=== PATIENT | male | born 1945 | race Hispanic/Latino ===

== ENCOUNTER → 2018-06-19 | Day surgery (SDC) | payer MEDICARE ==
[2018-06-10 10:10] LABS: BASOPHILS % 0.6 % (0.0-1.0); EOSINOPHILS # (AUTO) 0.2 (0.0-0.4); EOSINOPHILS % 3.1 % (0.0-6.0); HEMATOCRIT 46.1 % (38.2-49.6); HEMOGLOBIN 15.1 g/dL (14.0-18.0); LYMPHOCYTES # (AUTO) 2.8 (1.0-3.2); LYMPHOCYTES % 38.5 % (18.0-39.1); MEAN CORPUSCULAR HEMOGLOBIN 28.3 pg (28-32); MEAN CORPUSCULAR HGB CONC 32.8 g/dL (31-35); MEAN CORPUSCULAR VOLUME 86.3 fL (81-99); MONOCYTES # (AUTO) 0.7 (0.2-0.8); MONOCYTES % 10.2 % (4.4-11.3); NEUTROPHILS # (AUTO) 3.4 (2.1-6.9); NEUTROPHILS % 47.5 % (38.7-80.0); PLATELET COUNT 101 x10e3/uL (140-360); RED BLOOD COUNT 5.34 x10e6/uL (4.3-5.7); RED CELL DISTRIBUTION WIDTH 13.2 % (11.7-14.4)
--- NOTE | 2018-06-10 10:12 | Diagnostic Imaging Report ---
PROCEDURE: X-RAY CHEST, TWO VIEWS COMPARISON: None. INDICATIONS: PRE OP SHOULDER SURGERY FINDINGS: Lungs are well-inflated. No focal airspace consolidation, pleural effusion, or pneumothorax. No mediastinal lesion with an air-fluid level consistent with a hiatal hernia. Otherwise normal cardiomediastinal contour. No overt pulmonary edema. No acute osseous abnormalities. 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 CONCLUSION: No acute cardiopulmonary abnormality. Large hiatal hernia. Dictated by: Delano Falcon M.D. on 06/10/2018 at 10:20 Electronically approved by: Delano Falcon M.D. on 06/10/2018 at 10:20
[2018-06-10 10:26] LABS: ANION GAP 15.7 mmol/L (8-16); BLOOD UREA NITROGEN 16 mg/dL (7-26); BUN/CREATININE RATIO 16 (6-25); CALCIUM 10.1 mg/dL (8.4-10.2); CARBON DIOXIDE 28 mmol/L (22-29); CHLORIDE 100 mmol/L (98-107); CREATININE, SERUM 0.98 mg/dL (0.72-1.25); EST GLOMERULAR FILTRATION RATE > 60 ML/MIN (60-); GLUCOSE 96 mg/dL (74-118); POTASSIUM 3.7 mmol/L (3.5-5.1); SODIUM 140 mmol/L (136-145)
[~2018-06-19] MED LIST: BUPIVACAINE 0.25%/EPI 30ML SDV INJ ONE; DEXAMETHASONE SOD PHOS INJ 4 MG/ML VIAL ONE; EPHEDRINE SULFATE INJ 50 MG/10 ML SYR ONE; FAMOTIDINE40 MG PO; HYDROCODONE/APAP 7.5MG-325MG 1 EA TAB ONE; LIDOCAINE HCL 2% LOCAL INJ 5 ML SDV VIAL INJ ONE; LORTAB 7.51 EA GT; MIDAZOLAM HCL 2 MG/2 ML VIAL ONE; ONDANSETRON HCL INJ 2 MG/ML VIAL ONE; PROPOFOL IV EMULSION 10 MG/ML 20 ML VIAL ONE; SEVOFLURANE INHAL SOLN 250 ML PEN BTL ONE; TRAMADOL HCL-A1 EAC1 PO; Z.0.LOVENOX40 MG/0.4 SQ; Z.0.MELOXICAM7.5 MG PO; Z.1.DIOVAN HCT 3201 PO
--- OUTSIDE RECORDS SUMMARY | 2018-06-19 07:03 | XMS REPORT ---
Author Author [facility] Address Unknown Phone Unavailable Care Team Providers Care Die Operator Name Role Phone Azalia TOMPKINS Unavailable Unavailable Problems This patient has no known problems. Allergies, Adverse Reactions, Alerts This patient has no known allergies or adverse reactions. Medications This patient has no known medications. Results Test Description Test Time Test Comments Text Results Atomic Results Result Comments CHEST 2 VIEWS 2018-06-10 10:20:00 [place] [address] Patient Name: DEEPTI DANIELS MR #: [id number] : 1945 Age/Sex: 73/M Req #: [id number] Adm Physician: Ordered by: SONIA TOMPKINS MD Report #: [id number] Location: OR Room/Bed: Procedure: [id number] DX/CHEST 2 VIEWS Exam Date: Exam Time: REPORT STATUS: Signed PROCEDURE: X-RAY CHEST, TWO VIEWS COMPARISON: None. INDICATIONS: PRE OP SHOULDER SURGERY FINDINGS: Lungs are well-inflated. No focal airspace consolidation, pleural effusion, or pneumothorax. No mediastinal lesion with an air-fluid level consistent with a hiatal hernia. Otherwise normal cardiomediastinal contour. No overt pulmonary edema. No acute osseous abnormalities. 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 CONCLUSION: No acute cardiopulmonary abnormality. Large hiatal hernia. Dictated by: Mikey Zhang M.D. on 06/10/2018 at 10:20 Electronically approved by: Mikey Zhang M.D. on 06/10/2018 at 10:20 Dictated By: MIKEY ZHANG MD 1020 Transcribed By: CHAVA on 06/10/18 1020 COPY TO: SONIA TOMPKINS MD
--- NOTE | 2018-06-19 11:03 | Operative Report ---
DATE OF PROCEDURE: June 19, 2018 PREOPERATIVE DIAGNOSIS: Mass of the right shoulder. POSTOPERATIVE DIAGNOSIS: Intramuscular lipoma of the right shoulder. OPERATION PERFORMED: Resection of intramuscular lipomatous mass of the right shoulder. ANESTHESIA: General. COMPLICATIONS: None. ESTIMATED BLOOD LOSS: Minimal. DESCRIPTION OF PROCEDURE: With the patient lying in bed in the supine position under good general anesthesia, the right shoulder was prepped with Betadine solution and draped in the usual manner. The area overlying the mass in the anterior aspect of the right shoulder was then infiltrated with Marcaine solution. An incision was made and it was carried down through the subcutaneous tissue to the fascial covering. In an intramuscular position, a large lipomatous mass was found at the insertion of the biceps muscle. This was slowly and carefully from all the surrounding structures and totally and completely removed and sent for pathological examination. The whole area was thoroughly irrigated. Perfect hemostasis was ascertained. The fascia was then reapproximated with interrupted sutures of 3-0 Vicryl. The skin was closed with interrupted vertical mattress sutures of 3-0 silk. A dressing was applied. The sponge, lap and needle count was correct. The patient tolerated the procedure well and returned to the recovery room in stable condition. Job#: [id number] SHANDA
[2018-06-19 11:10] VITALS: BP 110/80
== END | disposition home or self-care (01) ==
LOC: OR 07:00
PROVIDERS: ATTEND Surgery
DX: D17.9 Benign lipomatous neoplasm, unspecified (principal); M06.9 Rheumatoid arthritis, unspecified; M19.90 Unspecified osteoarthritis, unspecified site; I10 Essential (primary) hypertension; I49.3 Ventricular premature depolarization; K21.9 Gastro-esophageal reflux disease without esophagitis; K44.9 Diaphragmatic hernia without obstruction or gangrene; Z01.810 Encounter for preprocedural cardiovascular examination; Z01.812 Encounter for preprocedural laboratory examination; Z01.818 Encounter for other preprocedural examination; Z96.651 Presence of right artificial knee joint; Z87.891 Personal history of nicotine dependence
CPT/HCPCS: 23076; 36415; 71046; 80048; 85025; 88304; 93005; J1100; J2001; J2250; J2405